=== PATIENT | female | born 1940 | race Caucasian/White ===

== ENCOUNTER 2022-07-30 08:34 | Emergency (ER) | payer MEDICARE, OTHER, SELFPAY ==
[2022-07-30] VITALS (15 sets, daily range): BP systolic 55–120; BP diastolic 31–96; PULSE 86–105; RESP 22–40; TEMP 36.9–38.3; O2SAT 95–100; BMI 21.0; BMI 23.6
--- NOTE | ~2022-07-30 | US_ITS ---
EXAMINATION: US VENOUS WITH DOPPLER UPPER EXTREMITY, LEFT CLINICAL INFORMATION: Left upper extremity pain and swelling. COMPARISON: None available. TECHNIQUE: Ultrasound of the upper extremity is performed using compression sonography and color and pulse Doppler flow with assessment of augmentation of flow. There is also imaging and Doppler assessment of the jugular and subclavian veins. Spectral analysis with color-flow imaging is performed. FINDINGS: Respiratory variation, normal compression, and augmented flow are noted throughout the upper extremity including the axillary, brachial, cubital, and radial and ulnar veins. There is normal flow in the internal jugular and subclavian veins. There is no visible deep or superficial thrombophlebitis. There is edema in the forearm and antecubital fossa. US/US venous duplex UE LT IMPRESSION: No DVT demonstrated in the left upper extremity.
--- NOTE | ~2022-07-30 | XR_ITS ---
EXAMINATION: XR CHEST CLINICAL INFORMATION: Chest pain COMPARISON: None available. TECHNIQUE: Frontal view of the chest was obtained. FINDINGS: Cardiac silhouette is enlarged. Atherosclerotic disease of the aortic arch. Small left and [id number] right-sided pleural effusions. No pneumothorax. XR/XR chest 1V IMPRESSION: Small left and [id number] right-sided pleural effusions.
--- NOTE | 2022-07-30 08:41 | ECG_ITS ---
Test Reason : SOB Blood Pressure : / mmHG Vent. Rate : 104 BPM Atrial Rate : 104 BPM P-R Int : 140 ms QRS Dur : 104 ms QT Int : 344 ms P-R-T Axes : 052 -24 175 degrees QTc Int : 452 ms Sinus tachycardia with Premature atrial complexes Possible Left atrial enlargement Left ventricular hypertrophy ( R in aVL , Sokolow-Marquez , [place] product , Romhilt-Barboza ) Cannot rule out Septal infarct , age undetermined Marked ST abnormality, possible inferolateral subendocardial injury Abnormal ECG No previous ECGs available Referred By: Generic ED Physician Electronically Signed By:Ricardo Zhao
--- NOTE | 2022-07-30 08:47 | ED.CHESTPAIN ---
HPI - Chest Pain General Chief Complaint: Chest Pain Stated Complaint: feet and hands swelling pain l arm abd pain sob Time Seen by Provider: 07/30/22 08:46 Source: patient and family (sister in-law) Mode of arrival: ambulatory Limitations: no limitations History of Present Illness HPI narrative: Patient is an 82 year old assigned female at with a history of neuropathy for which she takes gabapentin intermittently presenting to the emergency department today with shortness of breath, chest pain, and extremity swelling. Patient states that for the last 2 weeks she has been having chest pain that radiates into her jaw. Patient states that her on 07/28/2022 from cardiac issues but she does not have any that she knows of. Patient states that she has not gone to a doctor in many many years. Patient denies any dizziness, lightheadedness, abdominal pain, nausea, vomiting, fever, chills, blurry vision, double vision, loss of vision, back pain, night sweats, pain with urination, increased urinary frequency, increased urinary urgency, blood in her urine or stool, syncope or a near syncopal episode, recent trauma or falls, bowel incontinence, bladder incontinence, bowel retention, bladder retention, or any other complaints at this time. MD complaint: chest pain Onset (ago): week(s) (2) Related Data Allergies Allergy/AdvReac Type Severity Reaction Status Date / Time No Known Allergies Allergy Unverified 12/19/19 16:31 [No Known Allergies*] Review of Systems Constitutional: Constitutional: Reports no additional constitutional complaints, Denies chills, Denies fever(s) and Denies night sweats Eyes: Eyes: Reports no additional eye complaints, Denies blurry vision, Denies change in vision, Denies diplopia, Denies eye discharge, Denies loss of vision and Denies eye pain ENT: Denies dizziness Cardiovascular: Cardiovascular: Reports no additional cardiovascular complaints, Reports chest pain, Reports rapid heart rate, Reports leg edema, Denies lightheadedness, Denies Loss of Consciousness and Denies dyspnea Respiratory: Respiratory: Reports no additional respiratory complaints and Denies dyspnea Gastrointestinal: Gastrointestinal: Reports no additional gastrointestinal complaints, Denies abdominal pain, Denies melena, Denies hematochezia, Denies change in bowel habits and Denies change in stool character Genitourinary: Genitourinary: Denies hematuria, Denies urinary frequency, Denies dysuria, Denies urinary incontinence, Denies urinary hesitancy and Denies urinary urgency Musculoskeletal: Musculoskeletal: Reports no additional musculoskeletal complaints, Denies numbness and Denies tingling Neurologic: Denies dizziness, Denies loss of vision, Denies numbness and Denies tingling Psychiatric: Psychiatric: Reports no additional psychiatric complaints Endocrine: Endocrine: Reports no additional endocrine complaints Hematologic/Lymphatic: Hematologic/Lymphatic: Reports no additional hematologic/lymphatic complaints Allergic/Immunologic: Allergic/Immunologic: Reports no additional allergic/immunologic complaints [facility] Past Medical History Attestation statement: The following information was validated with the patient. Source: old records reviewed, obtained from family (patient's sister in-law) and nursing notes reviewed Social History Social History Alcohol intake: never Smoked in Last 30 Days: No Use of substances other than those prescribed or required for medical reasons: No Advance Directives: No Advance Directives Information Provided: Yes Physical Exam Vital Signs: Vital Signs: Last Vital Signs Temp 99.3 F 07/30/22 13:57 Pulse 98 07/30/22 13:57 Resp 29 H 07/30/22 13:57 BP 97/49 L 07/30/22 13:57 Pulse Ox 96 07/30/22 13:57 O2 Del Method BiPAP 07/30/22 13:57 FiO2 21 07/30/22 13:28 BMI result Body Mass Index 23.6 Const: General: cooperative, no acute distress, alert and awake Nutritional Appearance: well nourished Orientation/consciousness: patient oriented x3 Limitations: no limitations HEENT: Head: Yes normal to inspection and Yes atraumatic Ears: hearing grossly normal bilaterally and external ears normal General nose exam: Normal external nose present, no nasal discharge noted and no epistaxis Face and sinus: Yes normal facial exam, No abrasion and No laceration Mouth: Normal oral and palatal mucosa present, no drooling and no muffled voice Eyes: General: appearance normal, both eyes and all related structures Periorbital: periorbital findings normal Eyelids: Yes eyelids normal Conjunctivae: conjunctivae normal Pupils: Equal, round and reactive pupils present EOM: EOMs intact bilaterally Neck: Neck: Yes normal visual inspection, Yes full ROM and Yes no lymphadenopathy Chest: Chest palpation & inspection: normal inspection of the chest Resp: Effort & Inspection: labored Cardio: Rate: tachycardic Heart sounds: Murmur heart sound present GI: Inspection: Yes normal to inspection Palpation (GI): Soft to palpation, not firm, nontender and no guarding Neuro: General: patient oriented x3 and moves all extremities Cranial nerves: Yes Equal, round and reactive pupils present Cognition (Neuro): normal cognition Motor exam (neuro): 5/5 motor strength present throughout Sensory Exam: Normal double simultaneous stimulation for sensation Coordination: [id number] test normal Extrem: General: Yes normal to inspection, Yes full ROM and Yes capillary refill normal Psych: Appearance: grossly normal Mental Status: mental status grossly normal Affect: normal affect Attitude: cooperative Thought process: Normal thought process present Thought content: Normal thought content present Insight: Good insight present (Psych) Medications Administered Generic Name Dose Route Start Last Admin Trade Name Freq PRN Reason Stop Dose Admin Heparin Sodium/Sodium Chloride 25,000 unit in 250 mls @ 0 mls/hr 07/30/22 10:30 07/30/22 10:56 Heparin Sodium,Porcine/1/2ns IVCONT 12 units/kg/hr .Q0M EDDY 7.03 mls/hr Administration Protocol Per Protocol Norepinephrine Bitartrate 8 mg in 250 mls @ 0 mls/hr 07/30/22 13:15 07/30/22 13:48 Levophed IV 0.28 mcg/kg/min .Q0M EDDY 30.77 mls/hr Titration Protocol Per Protocol Discontinued Medications Generic Name Dose Route Start Last Admin Trade Name Freq PRN Reason Stop Dose Admin Acetaminophen 975 mg 07/30/22 10:15 07/30/22 10:34 Acetaminophen 325 Mg Tablet PO 07/30/22 10:16 975 mg ONCE ONE Administration Fentanyl 25 mcg 07/30/22 12:52 07/30/22 12:56 Fentanyl Citrate/Pf 100 Mcg/2 Ml Vial IVPUSH 07/30/22 12:53 25 mcg ONCE ONE Administration Protocol Heparin Sodium (Porcine) 3,500 unit 07/30/22 10:25 07/30/22 10:35 Heparin Sodium,Porcine 5,000 Unit/Ml Vial 60 unit/kg (3500 unit) 07/30/22 10:26 3,500 unit IVPUSH Administration ONCE ONE Sodium Chloride 1,000 mls @ 999 mls/hr 07/30/22 09:45 07/30/22 13:10 Ns IV 07/30/22 10:45 Infused .Q1H1M EDDY Infusion Ceftriaxone Sodium 2 gm/ 50 mls @ 100 mls/hr 07/30/22 09:36 07/30/22 13:11 Sodium Chloride IV 07/30/22 10:05 Infused ONCE ONE Infusion Sodium Chloride 500 mls @ 250 mls/hr 07/30/22 11:45 07/30/22 13:11 Ns IV 07/30/22 13:44 Infused .Q2H EDDY Infusion Medical Decision Making Medical Decision Making MDM Narrative: Patient is an 82 year old assigned female at with a history of neuropathy presenting to the emergency department today with increased shortness of breath and chest pain. Patient's physical exam showed a tachycardic and tachypnic individual with bilateral lower leg edema and a markedly swollen left upper extremity. Patient's blood work was markedly abnormal with a CR of 2.1, Troponin >3,600, BNP >21,000, BUN 44, and lactic of 7.9. Patient's EKG was also markedly abnormal with no previous to compare it to. Patient's chest x-ray showed an enlarged cardiac silhouette with bilateral pleural effusions. Question of a right lower infiltrate. Patient's rectal temperature was elevated at 101 F. Patient's left arm US showed no DVT. I spoke to cardiology who recommended getting an echo, having the patient on BiPaP, and heparinizing. Patient was immediately placed on BiPaP. Cardiology was at bed side during echo and determined the patient to have severe aortic stenosis. At that time, cardiology recommended transfer to the CCU at [facility]. Sepsis was considered in this patient at 0936. Patient was not given 30mg/kg of IV fluids secondary to her being blatant heart failure. I explained my physical exam findings as well as all test results to the patient and the patient's sister in-law. I answered all questions asked by the patient and the patient's sister in-law. Patient and the patient's sister in-law verbalized agreement and understanding with this treatment plan and transfer to [facility] CCU. Differential Diagnosis Differential Diagnoses: The differential diagnosis associated with the presentation includes heart failure, pneumonia, myocardial ischemia Consult Healthcare Provider Management of the patient was discussed with: [employer] (spoke to cardiology as noted in the MDM portion of this chart) Lab Data [facility] Lab Attestation statement: I reviewed the patient's lab results. 07/30/22 09:09 07/30/22 09:14 Labs: Lab Results 07/30/22 07/30/22 07/30/22 Range/Units 09:09 09:09 09:14 WBC 10.2 (4.8-10.8) X10*3/uL RBC 3.52 L (4.20-5.50) X10*6/uL Hgb 9.8 L (12.0-16.0) g/dl Hct 30.6 L (37.0-47.0) % MCV 86.9 (80.0-98.0) fL MCH 27.8 (27.0-33.0) pg MCHC 32.0 (31.0-35.0) g/dl RDW 15.1 (11.0-16.0) % Plt Count 197 (160-400) X10*3/uL MPV 10.1 (9.4-12.3) fL Absolute Nucleated RBC 0.000 (0.0-0.012) X10*3/uL Nucleated RBC % (auto) 0.0 (0.0-0.2) /100WBC PT 15.8 H (10.0-13.1) SEC INR 1.4 H (0.9-1.1) APTT 25.5 L (26.0-36.4) SEC Sodium (135-145) mmol/L Potassium (3.3-5.1) mmol/L Chloride (96-108) mmol/L Carbon Dioxide (22-29) mmol/L Anion Gap (12-20) BUN (9-16) mg/dL Creatinine (0.5-1.4) mg/dL Estim Creat Clear Calc Estimated GFR Random Glucose (60-115) mg/dL Lactic Acid (0.5-2.0) mmol/L Lactic Acid F/U @ 2Hr (0.5-2.0) mmol/L Calcium (8.4-10.2) mg/dL Magnesium (1.6-2.6) mg/dL Total Bilirubin (0.0-1.0) mg/dL AST (5-31) U/L ALT (0-31) U/L Alkaline Phosphatase (39-117) U/L Troponin I High Sens (<3.5-17.0) ng/L B-Natriuretic Peptide 00023 H (<100) pg/mL Total Protein (6.5-8.0) g/dL Albumin (3.5-5.0) g/dL COVID-19 (JASMIN) (Negative) COVID-19 Clin Com Influenza Type A (MODE) (Negative) Influenza Type B (MODE) (Negative) Influenza A & B Note Blood Type Antibody Screen 07/30/22 07/30/22 07/30/22 Range/Units 09:14 09:14 10:12 WBC (4.8-10.8) X10*3/uL RBC (4.20-5.50) X10*6/uL Hgb (12.0-16.0) g/dl Hct (37.0-47.0) % MCV (80.0-98.0) fL MCH (27.0-33.0) pg MCHC (31.0-35.0) g/dl RDW (11.0-16.0) % Plt Count (160-400) X10*3/uL MPV (9.4-12.3) fL Absolute Nucleated RBC (0.0-0.012) X10*3/uL Nucleated RBC % (auto) (0.0-0.2) /100WBC PT (10.0-13.1) SEC INR (0.9-1.1) APTT (26.0-36.4) SEC Sodium 137 (135-145) mmol/L Potassium 4.8 (3.3-5.1) mmol/L Chloride 102 (96-108) mmol/L Carbon Dioxide 19 L (22-29) mmol/L Anion Gap 21 H (12-20) BUN 44 H (9-16) mg/dL Creatinine 2.10 H (0.5-1.4) mg/dL Estim Creat Clear Calc 16.8 Estimated GFR 23 Random Glucose 112 (60-115) mg/dL Lactic Acid (0.5-2.0) mmol/L Lactic Acid F/U @ 2Hr (0.5-2.0) mmol/L Calcium 9.0 (8.4-10.2) mg/dL Magnesium 2.1 (1.6-2.6) mg/dL Total Bilirubin 3.1 H (0.0-1.0) mg/dL AST 78 H (5-31) U/L ALT 42 H (0-31) U/L Alkaline Phosphatase 49 (39-117) U/L Troponin I High Sens > 3600.0 H* (<3.5-17.0) ng/L B-Natriuretic Peptide (<100) pg/mL Total Protein 5.8 L (6.5-8.0) g/dL Albumin 3.5 (3.5-5.0) g/dL COVID-19 (JASMIN) (Negative) COVID-19 Clin Com Influenza Type A (MODE) (Negative) Influenza Type B (MODE) (Negative) Influenza A & B Note Blood Type A Positive Antibody Screen NEGATIVE 07/30/22 07/30/22 07/30/22 Range/Units 10:14 10:14 10:14 WBC (4.8-10.8) X10*3/uL RBC (4.20-5.50) X10*6/uL Hgb (12.0-16.0) g/dl Hct (37.0-47.0) % MCV (80.0-98.0) fL MCH (27.0-33.0) pg MCHC (31.0-35.0) g/dl RDW (11.0-16.0) % Plt Count (160-400) X10*3/uL MPV (9.4-12.3) fL Absolute Nucleated RBC (0.0-0.012) X10*3/uL Nucleated RBC % (auto) (0.0-0.2) /100WBC PT (10.0-13.1) SEC INR (0.9-1.1) APTT (26.0-36.4) SEC Sodium (135-145) mmol/L Potassium (3.3-5.1) mmol/L Chloride (96-108) mmol/L Carbon Dioxide (22-29) mmol/L Anion Gap (12-20) BUN (9-16) mg/dL Creatinine (0.5-1.4) mg/dL Estim Creat Clear Calc Estimated GFR Random Glucose (60-115) mg/dL Lactic Acid 7.9 H* (0.5-2.0) mmol/L Lactic Acid F/U @ 2Hr (0.5-2.0) mmol/L Calcium (8.4-10.2) mg/dL Magnesium (1.6-2.6) mg/dL Total Bilirubin (0.0-1.0) mg/dL AST (5-31) U/L ALT (0-31) U/L Alkaline Phosphatase (39-117) U/L Troponin I High Sens (<3.5-17.0) ng/L B-Natriuretic Peptide (<100) pg/mL Total Protein (6.5-8.0) g/dL Albumin (3.5-5.0) g/dL COVID-19 (JASMIN) Negative (Negative) COVID-19 Clin Com See Note Influenza Type A (MODE) Negative (Negative) Influenza Type B (MODE) Negative (Negative) Influenza A & B Note See Note Blood Type Antibody Screen 07/30/22 Range/Units 12:43 WBC (4.8-10.8) X10*3/uL RBC (4.20-5.50) X10*6/uL Hgb (12.0-16.0) g/dl Hct (37.0-47.0) % MCV (80.0-98.0) fL MCH (27.0-33.0) pg MCHC (31.0-35.0) g/dl RDW (11.0-16.0) % Plt Count (160-400) X10*3/uL MPV (9.4-12.3) fL Absolute Nucleated RBC (0.0-0.012) X10*3/uL Nucleated RBC % (auto) (0.0-0.2) /100WBC PT (10.0-13.1) SEC INR (0.9-1.1) APTT (26.0-36.4) SEC Sodium (135-145) mmol/L Potassium (3.3-5.1) mmol/L Chloride (96-108) mmol/L Carbon Dioxide (22-29) mmol/L Anion Gap (12-20) BUN (9-16) mg/dL Creatinine (0.5-1.4) mg/dL Estim Creat Clear Calc Estimated GFR Random Glucose (60-115) mg/dL Lactic Acid (0.5-2.0) mmol/L Lactic Acid F/U @ 2Hr 3.2 H* (0.5-2.0) mmol/L Calcium (8.4-10.2) mg/dL Magnesium (1.6-2.6) mg/dL Total Bilirubin (0.0-1.0) mg/dL AST (5-31) U/L ALT (0-31) U/L Alkaline Phosphatase (39-117) U/L Troponin I High Sens (<3.5-17.0) ng/L B-Natriuretic Peptide (<100) pg/mL Total Protein (6.5-8.0) g/dL Albumin (3.5-5.0) g/dL COVID-19 (JASMIN) (Negative) COVID-19 Clin Com Influenza Type A (MODE) (Negative) Influenza Type B (MODE) (Negative) Influenza A & B Note Blood Type Antibody Screen Independent Interpretation I performed an independent interpretation of an: EKG Interpretation: Vent. Rate: 104 BPM ? ? Atrial Rate: 104 BPM P-R Int: 140 ms? QRS Dur: 104 ms QT Int: 344 ms ? ? ? P-R-T Axes: 052 -24 175 degrees QTc Int: 452 ms ? Sinus tachycardia with Premature atrial complexes Possible Left atrial enlargement Left ventricular hypertrophy ( R in aVL , Sokolow-Marquez , [place] product , Romhilt-Barboza ) Cannot rule out Septal infarct , age undetermined Marked ST abnormality, possible inferolateral subendocardial injury Abnormal ECG No previous ECGs available DD/ 0851 Radiology Impression Radiologist Impression: My interpretation is in agreement with the radiologist's impression of these imaging studies. EXAMINATION:? US VENOUS WITH DOPPLER UPPER EXTREMITY, LEFT CLINICAL INFORMATION:? Left upper extremity pain and swelling. COMPARISON:? None available. TECHNIQUE: Ultrasound of the upper extremity is performed using compression sonography and color and pulse Doppler flow with assessment of augmentation of flow. There is also imaging and Doppler assessment of the jugular and subclavian veins. Spectral analysis with color-flow imaging is performed. FINDINGS: Respiratory variation, normal compression, and augmented flow are noted throughout the upper extremity including the axillary, brachial, cubital, and radial and ulnar veins. There is normal flow in the internal jugular and subclavian veins. There is no visible deep or superficial thrombophlebitis. There is edema in the forearm and antecubital fossa. US/US venous duplex UE LT IMPRESSION: No DVT demonstrated in the left upper extremity. Dictated By: Lamont Domínguez MD Signed By: Electronically signed by Lamont Domínguez MD 07/30/22 1125 EXAMINATION: XR CHEST CLINICAL INFORMATION: Chest pain COMPARISON: None available. TECHNIQUE: Frontal view of the chest was obtained. FINDINGS: Cardiac silhouette is enlarged. Atherosclerotic disease of the aortic arch. Small left and [id number] right-sided pleural effusions. No pneumothorax. XR/XR chest 1V IMPRESSION: Small left and [id number] right-sided pleural effusions. Dictated By: Josafat Casey MD Signed By: Electronically signed by Josafat Casey MD 07/30/22 0923 Independent Historian Clinical information obtained from an independent historian. History obtained from or confirmed by: Other (patient's sister in-law) Critical Care Time Critical Care Time Critical Care Time: Yes Total Critical Care Time: 60 Attestation: I spent 60 minutes of Critical Care Time with this patient. This does not include time spent on separately reported billable procedures. Discharge Plan Discharge Clinical Impression: Heart failure, Aortic stenosis Patient Disposition: Xfer [facility] Transfer Details: [facility] CCU Interventions: Acute Care Transfer Worksheet (ED) Last Done: 07/30/22 13:30
[2022-07-30 09:13] LABS: Hematocrit 30.6 % (37.0-47.0); Hemoglobin 9.8 g/dl (12.0-16.0); Mean Corpuscular Hemoglobin 27.8 pg (27.0-33.0); Mean Corpuscular Volume 86.9 fL (80.0-98.0); Mean Platelet Volume 10.1 fL (9.4-12.3); Platelet Count 197 X10*3/uL (160-400); Red Blood Count 3.52 X10*6/uL (4.20-5.50); Red Cell Distribution Width 15.1 % (11.0-16.0); White Blood Count 10.2 X10*3/uL (4.8-10.8)
[2022-07-30 09:26] LABS: INTERNATIONAL NORM RATIO 1.4 (0.9-1.1); Prothrombin Time 15.8 SEC (10.0-13.1)
[2022-07-30 09:28] LABS: Partial Thromboplastin Time 25.5 SEC (26.0-36.4)
[2022-07-30] MEDS: 0.9 % Sodium Chloride 1,000 ML 999 ML IV (09:35)
[2022-07-30 09:51] LABS: Alanine Aminotransferase 42 U/L (0-31); Albumin Level 3.5 g/dL (3.5-5.0); Alkaline Phosphatase 49 U/L (39-117); Anion Gap 21 (12-20); Aspartate Amino Transferase 78 U/L (5-31); Bilirubin Total 3.1 mg/dL (0.0-1.0); Blood Urea Nitrogen 44 mg/dL (9-16); Carbon Dioxide 19 mmol/L (22-29); Chloride 102 mmol/L (96-108); Creatinine Clr Calc Pharmacy 16.8; Estimated Glomerular Filt Rate 23; Glucose Random 112 mg/dL (60-115); Magnesium 2.1 mg/dL (1.6-2.6); Potassium 4.8 mmol/L (3.3-5.1); Sodium 137 mmol/L (135-145); Total Protein 5.8 g/dL (6.5-8.0)
[2022-07-30 09:55] LABS: Troponin-I High Sensitivity > 3600.0 ng/L (<3.5-17.0)
--- NOTE | 2022-07-30 10:10 | CA_ITS ---
Transthoracic Echocardiogram Patient (Last, First, Middle): Laya Flannery, Gender: Female Date of : 1940 Age: 82 Procedure Date: 07/30/2022 Procedure Type: Transthoracic Echocardiogram Location: ER Height: 157.48 cm Weight: 58.51 kg BSA: 1.59 m2 Heart Rate: bpm BP: 70 / 43 mmHg Sheet Writer: Referring MD: Tiff HERRERA Symptoms: murmur and new acute failure Study Quality: Fair ECG Rhythm: Sinus Conclusions: - Normal left ventricular cavity size. There is severely increased left ventricular wall thickness. The left ventricular systolic function is severely decreased. The visually estimated ejection fraction is between 15-20%. - Elevated filling pressures. - Normal right ventricular cavity size. There is mildly decreased right ventricular systolic function. - There is severe aortic valve stenosis. The peak aortic velocity is 5.13 m/s. The mean gradient is 63 mmHg. The aortic valve area is 0.35 cm2. There is mild to moderate aortic valve regurgitation. - Significantly elevated right atrial pressure. Mild pulmonary hypertension is present. Findings Left Ventricle Normal left ventricular cavity size. There is severely increased left ventricular wall thickness. The left ventricular systolic function is severely decreased. The visually estimated ejection fraction is between 15 20%. There is severe global hypokinesis. Abnormal diastolic function is noted. Spectral Doppler is indicative of a restrictive filling pattern. Elevated filling pressures. Right Ventricle Normal right ventricular cavity size. There is mildly decreased right ventricular systolic function. Atria The left atrium is severely dilated. Aortic Valve There is severe calcification of the aortic valve. There is severe aortic valve stenosis. The peak aortic velocity is 5.13 m/s. The mean gradient is 63 mmHg. The aortic valve area is 0.35 cm2. There is mild to moderate aortic valve regurgitation. Mitral Valve There is moderate mitral annular calcification. There is mild mitral valve regurgitation. There is no mitral valve stenosis. Pulmonic Valve The pulmonic valve is likely normal. Tricuspid Valve Normal tricuspid valve structure and function. There is mild tricuspid valve regurgitation. Significantly elevated right atrial pressure. Mild pulmonary hypertension is present. Great Vessels All visible segments of the aorta are normal in size. Venous The inferior vena cava is dilated and does not collapse with inspiration. Pericardium/Pleural There is a trivial circumferential pericardial effusion. Prior Study Comparison No prior study available for comparison. Measurements 2D Linear Measurements IVSd: 1.47 0.6-0.9/0.6-1.0 cm LVIDd: 4.90 3.9-5.3/4.2-5.9 cm LVIDd Index: 3.08 2.4-3.2/2.2-3.1 cm/m2 LVIDs: 4.45 2.0-3.6 cm LVPWd: 1.51 0.7-1.1 cm Ao Root: 2.90 2.1-3.5 cm LA Diam: 5.00 2.7-3.8/3.0-4.0 cm LAIDs Index: 3.14 1.5-2.3 cm/m2 LV Mass: 386.52 67-162/88-224 g LV Mass Index: 243.10 43-95/49-115 g/m2 LVOT Diam: 1.90 3.0+(-)1.3 cm 2D Systolic Function EF 4C: 14.00 >55% EF 2C: 21.30 >55% EF BiP: 16.90 >55% Mitral Valve MV VTI: 0.30 MV Pk Fawad: 1.45 MV Mn Fawad: 0.81 MV Pk Grad: 8.00 MV Mn Grad: 3.00 MV Pk E: 1.28 MV PK A: 0.59 MV Decel Time: 144.00 E/A: 2.20 E'Lateral: 4.68 E'Medial: 3.70 E/E' Med: 34.60 E/E' Lat: 27.40 PHT: 42.00 MVA PHT: 5.24 MVA Continuity: 1.40 Decel Christian: 8.92 Aortic Valve AoV Pk Fawad: 5.13 AoV Mn Fawad: 3.75 AoV VTI: 1.21 AoV Pk Grad: 105.00 Aov Mn Grad: 63.00 TRACI Cont.VTI: 0.35 AI Pk Fawad: 3.03 AI Christian: 5.96 LVOT LVOT Pk Fawad: 0.61 LVOT Mn Fawad: 0.42 LVOT VTI: 0.15 LVOT Pk Grad: 1.00 LVOT Mn Grad: 1.00 LVOT Diam: 1.90 LVOT Area: 2.84 Diastolic Function MV Pk E: 1.28 MV Pk A: 0.59 E/A: 2.20 E'Medial: 3.70 E/E' Med: 34.60 E' Laterial: 4.68 E/E' Lat: 27.40 Right Ventricle TAPSE (mm): 17.00 TVS' Fawad: 9.00 Tricuspid Valve TR Pk Fawad: 2.60 TR Pk Grad: 27.00 RA Press: 8.00 RVSP: 35.00 Great Vessels Aorta Ao Root-2D: 2.90 2.0-3.7 cm Pulmonary Valve PV Pk Fawad: 0.89 Peak PV Grad: 3.00 Updated in Other Vendor System with Status of Final Ricardo Zhao MD electronically signed on 07/30/2022 8:50:47 PM with status of Final
[2022-07-30] MEDS: cefTRIAXone sodium 2 GM in 0.9 % Sodium Chloride 50 ML IV (10:25)
[2022-07-30 10:34] LABS: B Type Natriuretic Peptide 21177 pg/mL (<100)
[2022-07-30] MEDS: Acetaminophen 325 MG TABLET 975 MG PO (10:34)
[2022-07-30] MEDS: Heparin Sodium,Porcine 5,000 UNIT/ML VIAL 3500 UNIT IVPUSH (10:35)
[2022-07-30 10:40] LABS: Lactic Acid 7.9 mmol/L (0.5-2.0)
[2022-07-30 10:50] LABS: COVID-19 Test Negative (Negative); IDNOW Serial# 08D9AD1C
[2022-07-30 10:51] LABS: IDNOW Serial# BCCEAD1C; Influenza A Negative (Negative); Influenza B2 Negative (Negative)
[2022-07-30] MEDS: Heparin Sodium,Porcine/1/2NS 25,000 UNIT/250 ML IV.SOLN 7.03 UNIT IVCONT (10:56)
--- NOTE | 2022-07-30 11:05 | PC.NURSE ---
Dr. Barry notified of manual blood pressure of 70/40. Patient resting quietly.
--- NOTE | 2022-07-30 11:25 | PM.CNCAR ---
History of Present Illness History of Present Illness Date of Service: 07/30/22 Requesting physician: Luis Barry Chief complaint: SOB, elevated troponin, ASADIA Narrative: 82-year-old female who is presenting to us for shortness of breath ongoing for few months with worsening over the last 5 days. She said her was sick and she did not mention it to him because he was at the end of his life. He unfortunately recently. She said over the last 5 days she has more shortness of breath, cough productive of sputum. She also has fevers in the emergency department. She is short of breath visibly. She is denying any chest discomfort but did have some discomfort off and on along with some jaw discomfort at home. Was transiently noticed to be hypoxic care. Chest x-ray showing bilateral effusions with concern for right basilar infiltrate. She has some left upper extremity swelling which developed over the last 24 hours. The arm is quite tender to touch. We will get an ultrasound for this. [facility] Social History Social History Alcohol intake: never Smoked in Last 30 Days: No Use of substances other than those prescribed or required for medical reasons: No Advance Directives: No Advance Directives Information Provided: Yes Meds Allergies Allergy/AdvReac Type Severity Reaction Status Date / Time No Known Allergies Allergy Unverified 12/19/19 16:31 [No Known Allergies*] Active Medications: Current Medications Heparin Sodium (Porcine) (Heparin Sodium,Porcine 5,000 Unit/Ml Vial) 2,300 unit 40 unit/kg (2300 unit) IVPUSH PROTOCOL BOLUS PRN; Protocol PRN Reason: 40 unit/kg - Heparin Protocol Heparin Sodium (Porcine) (Heparin Sodium,Porcine 5,000 Unit/Ml Vial) 4,700 unit 80 unit/kg (4700 unit) IVPUSH PROTOCOL BOLUS PRN; Protocol PRN Reason: 80 unit/kg - Heparin Protocol Heparin Sodium/Sodium Chloride (Heparin Sodium,Porcine/1/2ns) 25,000 unit in 250 mls @ 0 mls/hr IVCONT .Q0M [facility]; Protocol Last Admin: 07/30/22 10:56 Dose: 12 units/kg/hr, 7.03 mls/hr Physical Exam Vital Signs: Vital Signs: Last Vital Signs Temp 101.0 F H 07/30/22 09:35 Pulse 86 04/29/23 10:46 Resp 40 H 07/30/22 10:46 BP 70/40 L 07/30/22 11:01 Pulse Ox 98 07/30/22 11:01 O2 Del Method BiPAP 07/30/22 11:01 BMI result Body Mass Index 23.6 GENERAL APPEARANCE: Short of breath. NECK: no carotid bruit, positive jugular venous distention. SKIN: no suspicious lesions, warm and dry. HEART: Systolic murmur aortic area with no 2nd heart sound, regular rate and rhythm. Tachycardic. LUNGS: Crackles at bases with diminished breath sounds. ABDOMEN: soft, nontender. EXTREMITIES: no edema. PERIPHERAL PULSES: equal. NEUROLOGIC: No gross deficits, AAO X 3 Objective Labs and Meds 07/30/22 09:09 07/30/22 09:14 Lab results: Laboratory Results - last 24 hr 07/30/22 07/30/22 07/30/22 09:09 09:09 09:14 WBC 10.2 RBC 3.52 L Hgb 9.8 L Hct 30.6 L MCV 86.9 MCH 27.8 MCHC 32.0 RDW 15.1 Plt Count 197 MPV 10.1 Absolute Nucleated RBC 0.000 Nucleated RBC % (auto) 0.0 PT 15.8 H INR 1.4 H APTT 25.5 L Sodium Potassium Chloride Carbon Dioxide Anion Gap BUN Creatinine Estim Creat Clear Calc Estimated GFR Random Glucose Lactic Acid Calcium Magnesium Total Bilirubin AST ALT Alkaline Phosphatase Troponin I High Sens B-Natriuretic Peptide 01259 H Total Protein Albumin COVID-19 (JASMIN) COVID-19 Clin Com Influenza Type A (MODE) Influenza Type B (MODE) Influenza A & B Note 07/30/22 07/30/22 07/30/22 09:14 09:14 10:14 WBC RBC Hgb Hct MCV MCH MCHC RDW Plt Count MPV Absolute Nucleated RBC Nucleated RBC % (auto) PT INR APTT Sodium 137 Potassium 4.8 Chloride 102 Carbon Dioxide 19 L Anion Gap 21 H BUN 44 H Creatinine 2.10 H Estim Creat Clear Calc 16.8 Estimated GFR 23 Random Glucose 112 Lactic Acid 7.9 H* Calcium 9.0 Magnesium 2.1 Total Bilirubin 3.1 H AST 78 H ALT 42 H Alkaline Phosphatase 49 Troponin I High Sens > 3600.0 H* B-Natriuretic Peptide Total Protein 5.8 L Albumin 3.5 COVID-19 (JASMIN) COVID-19 Clin Com Influenza Type A (MODE) Influenza Type B (MODE) Influenza A & B Note 07/30/22 07/30/22 10:14 10:14 WBC RBC Hgb Hct MCV MCH MCHC RDW Plt Count MPV Absolute Nucleated RBC Nucleated RBC % (auto) PT INR APTT Sodium Potassium Chloride Carbon Dioxide Anion Gap BUN Creatinine Estim Creat Clear Calc Estimated GFR Random Glucose Lactic Acid Calcium Magnesium Total Bilirubin AST ALT Alkaline Phosphatase Troponin I High Sens B-Natriuretic Peptide Total Protein Albumin COVID-19 (JASMIN) Negative COVID-19 Clin Com See Note Influenza Type A (MODE) Negative Influenza Type B (MODE) Negative Influenza A & B Note See Note Imaging Radiologist's impression: Impressions Chest X-Ray 07/30/22 09:10 IMPRESSION: Small left and [id number] right-sided pleural effusions. Assessment and Plan (1) Shortness of breath: Status: Acute (2) Elevated troponin: Status: Acute (3) Hypotension: Status: Acute Plan 82-year-old female who is presenting to the hospital with shortness of breath ongoing for few months with recent worsening in the last 5 days with productive cough and fever. She has a right basilar infiltrate on chest x-ray. She is also hypotensive. By exam she has the systolic murmur in the aortic area and can have underlying . Exam is somewhat limited because she is so short of breath. Given hypoxia and shortness of breath and work of breathing I have decided to put on BiPAP short-term. She should have Tylenol to bring her temperature down. She should be covered for pneumonia with antibiotics. She is hypotensive and I feel currently with her presentation she should be treated like his. She can get 250 cc bolus to see if she responds. If this does not were then I will try another bolus of 250 cc. Do not give her 1 L at a time. Her respiratory status should be monitored closely. I think part of her tachypnea and tachycardia is related to the fever of 101. We will get an echocardiogram done on her today to assess the systolic murmur from aortic stenosis. She has significantly elevated troponin levels, BNP and kidney function. EKG has significant LVH with repolarization changes. I have decided to heparinize her for now. Please monitor hemoglobin closely. We will follow along with you. Thank you for allowing me to participate in the care of your patient. Please feel free to contact me if you have any questions. Time Spent With Patient Time: Total time managing care of this patient today ____ minutes. Procedures Date of Service Date of Service: 07/30/22
--- NOTE | 2022-07-30 11:45 | PC.NURSE ---
Dr. Zhao notified gave verbal order for 250cc bolus for bp 69/37.
[2022-07-30] MEDS: 0.9 % Sodium Chloride 500 ML 250 ML IV (11:48)
[2022-07-30 12:21] LABS: Reflex Lactate? Lactic Acid Added
[2022-07-30] MEDS: fentaNYL citrate/PF 100 MCG/2 ML VIAL 25 MCG IVPUSH (12:56)
--- NOTE | 2022-07-30 13:02 | PC.NURSE ---
Patient alert and responds blood pressure just taken is 55/31 Dr. Barry notified will order a levophed drip. Patient alert and oriented x 4, still mentating and c/o left arm pain 10/10 fentanyl given awaiting to see if effective. EMS here to take her to [facility] cannot transfer her with that blood pressure. Calling [facility] to give report.
[2022-07-30 13:09] LABS: ~Lactic Acid-LAB USE ONLY 3.2 mmol/L (0.5-2.0)
[2022-07-30] MEDS: Norepinephrine Bitartrate/D5W 8 MG/250 ML PLAST..BAG 5.49 MG IV (13:11)
--- NOTE | 2022-07-30 13:48 | PC.NURSE ---
LEVO GTT TITRATERD REQUESTED BY MD ARNOLD. DELAY WITH TRANSFERRING PT GIVEN HYPOTENSION.
[2022-07-30 14:45] LABS: Reflex Lactate? 2 Y
== END 2022-07-30 13:55 | disposition short-term general hospital (02) ==
PROVIDERS: Physician Assistant Medical; Emergency Provider Emergency Medicine
DX: I50.9 Heart failure, unspecified (principal); I35.0 Nonrheumatic aortic (valve) stenosis; R78.81 Bacteremia; B95.0 Streptococcus, group A, as the cause of diseases classified elsewhere; R50.9 Fever, unspecified; I95.9 Hypotension, unspecified; R07.9 Chest pain, unspecified; R60.0 Localized edema; R06.02 Shortness of breath; Z20.822 Contact with and (suspected) exposure to COVID-19
CPT/HCPCS: 36415; 71045; 80053; 83605; 83735; 83880; 84484; 85027; 85610; 85730; 86850; 86900; 86901; 87040; 87147; 87186; 87205; 87502; 87635; 93005; 93306; 93971; 96361; 96365; 96366; 96367; 96375; 99285; J0696; J1643; J3010; Q9957